=== PATIENT | male | born 1980 | race Caucasian/White ===

== ENCOUNTER 2021-07-12 21:32 | Emergency (ER) | payer OTHER, BC ==
[~2021-07-12] VITALS: Ht 177.8 cm; Wt 122.7 kg
[2021-07-12] MEDS ORDERED: ACET-683 PO (21:47)
[2021-07-12] MEDS ORDERED: ALEV220T22 PO (21:47)
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
[2021-07-13] MEDS ORDERED: ACETAMINOPHEN 325 MG TAB PO ONE
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
[2021-07-13] MEDS ORDERED: MAALOX 30 ML SUSP *UDC PO ONE (01:05)
[2021-07-13 01:14] VITALS: BP 146/95
== END 2021-07-13 01:16 | disposition home or self-care (01) ==
LOC: M ED 21:32
DX: Z04.1 Encounter for examination and observation following transport accident (principal); S90.32XA Contusion of left foot, initial encounter; S16.1XXA Strain of muscle, fascia and tendon at neck level, initial encounter; V43.52XA Car driver injured in collision with other type car in traffic accident, initial encounter; Y92.89 Other specified places as the place of occurrence of the external cause; Y93.89 Activity, other specified; Y99.8 Other external cause status; J45.909 Unspecified asthma, uncomplicated; Z88.1 Allergy status to other antibiotic agents; Z88.0 Allergy status to penicillin; Z91.030 Bee allergy status